=== PATIENT | female | born 1970 | race Caucasian/White ===

== ENCOUNTER 2017-01-01 10:53 | Emergency (ER) | payer SELFPAY ==
[2017-01-01] MEDS ORDERED: Ketorolac Tromethamine 60 MG/2 ML VIAL ONE (10:57)
== END 2017-01-01 11:19 | disposition home or self-care (01) ==
LOC: BURERS 10:53
DX: T22.111A Burn of first degree of right forearm, initial encounter (principal); T31.0 Burns involving less than 10% of body surface; E11.9 Type 2 diabetes mellitus without complications; I10 Essential (primary) hypertension; F32.9 Major depressive disorder, single episode, unspecified; Z79.84 Long term (current) use of oral hypoglycemic drugs; X11.8XXA Contact with other hot tap-water, initial encounter
CPT/HCPCS: 96372; J1885

== ENCOUNTER 2017-07-07 10:38 | Emergency (ER) | payer SELFPAY ==
[2017-07-07] MEDS ORDERED: Nitroglycerin 2% Ointment 1 INCH/1 GM Packet ONE (10:53)
[2017-07-07 11:09] LABS: #Basophils 0.1 thou/uL (0.0-0.2); #Eosinphils 0.1 thou/uL (0.0-0.7); #Monocytes 0.5 thou/uL (0.11-0.59); %Basophils 0.6 % (0.0-1.0); %Lymphocytes 27.9 % (21.0-51.0); %Monocytes 4.3 % (0.0-10.0); %Neutrophils 66.1 % (42.0-75.0); Hemoglobin 19.9 g/dL (12.0-16.0); Mean Corpuscular HGB CONC 33.1 g/dL (32.0-36.0); Mean Corpuscular Hemoglobin 30.4 pg (27.0-31.0); Mean Corpuscular Volume 91.9 fl (81.0-99.0); Mean Platelet Volume 9.9 fL (7.4-10.4); Platelet Count 154 thou/uL (130-400); RBC Distribution Width 11.8 % (11.5-14.5); Red Blood Cell (RBC) Count 6.55 mill/uL (4.20-5.40); White Blood Cell (WBC) Count 10.6 thou/uL (4.8-10.8)
[2017-07-07 11:18] LABS: ALT (SGPT) 178 U/L (8-55); AST (SGOT) 115 U/L (5-34); Albumin 3.9 g/dL (3.5-5.0); Alkaline Phosphatase 242 U/L (40-150); Anion Gap 17 mmol/L (10-20); BUN (Urea Nitrogen) 16 mg/dL (7.0-18.7); Bilirubin, Total 0.9 mg/dL (0.2-1.2); Calc. Creatinine Clearance 0 mL/min (70-130); Calcium 9.7 mg/dL (7.8-10.44); Carbon Dioxide 21 mmol/L (22-29); Chloride 102 mmol/L (98-107); Estimated GFR-MDRD 81; Globulin 4.6 g/dL (2.4-3.5); Glucose 348 mg/dL (70-105); Protein, Total 8.5 g/dL (6.0-8.3); Sodium 136 mmol/L (136-145)
[2017-07-07 11:20] LABS: CKMB 0.7 ng/mL (0-6.6); Troponin I Less than 0.010 ng/mL (< 0.028)
[2017-07-07] MEDS ORDERED: Ketorolac Tromethamine 30 MG/ML VIAL ONE (11:36)
--- NOTE | 2017-07-07 11:52 | RAD ---
PORTABLE CHEST: Date: 07-07-17 An AP portable film at 1056 is compared with a 10-21-11 study. FINDINGS: The heart is normal in size and the lungs are clear. No infiltrate or effusion was seen. There is no congestion of vessels. The trachea is midline. IMPRESSION: No acute finding. POS: HOME
[2017-07-07] MEDS ORDERED: Prochlorperazine 10 MG/2 ML VIAL ONE (11:56)
[2017-07-07] MEDS ORDERED: traMADol HCl 50 MG TAB ONE (12:16)
--- NOTE | 2017-07-07 13:32 | CT ---
CT ABDOMEN AND PELVIS WITHOUT CONTRAST 07/07/2017 TECHNIQUE: A spiral CT of the abdomen and pelvis was done without oral or IV contrast, as requested. Axial sli randall were acquired and then coronal and sagittal reconstructions were done. FINDINGS: The lung bases are clear. The liver is perhaps upper normal to borderline in size but internally ap pears normal. The spleen, pancreas, adrenal glands, kidneys, and abdominal aorta are unremarkable i n appearance. No gallbladder is seen. The bowel is nondistended, showing no sign of obstruction. No inflammatory change is seen around th e bowel. There is no bowel wall thickening. No free air or free fluid is present. CT pelvis shows no pelvic masses, fluid collections, or inflammatory changes. The bony structures i n the pelvic region are unremarkable. IMPRESSION: 1. Hepatic size is upper normal or borderline. This may or may not be significant. 2. Not mentioned above but present is a very vague lucent area in the left kidney that might be a c yst, but an elective ultrasound would be needed to be certain. POS: HOME
[2017-07-07 17:34] LABS: HBCM Index 0.15 S/CO (0-0.79); Hep A IgM AB Non-Reactive (NonReactive); Hep A IgM S/CO 0.17 S/CO (0-0.79); Hep B Surf Ag Non-Reactive S/CO (NonReactive); Hepatitis B Core IGM Abs Non-Reactive (NonReactive)
[2017-07-07 18:09] LABS: Hep C IgG Ab Reflex HepC Qnt (NonReactive); Hep C Index 13.61 S/CO (0-0.79)
[2017-07-11 14:13] LABS: HCV log10 6.146 (.); Hep C PCR-Quant 1400000 IU/mL (.)
== END 2017-07-07 12:43 | disposition home or self-care (01) ==
LOC: BURERS 10:38
DX: S43.401A Unspecified sprain of right shoulder joint, initial encounter (principal); R07.89 Other chest pain; I10 Essential (primary) hypertension; E11.9 Type 2 diabetes mellitus without complications; F31.9 Bipolar disorder, unspecified; F41.9 Anxiety disorder, unspecified; F17.210 Nicotine dependence, cigarettes, uncomplicated
CPT/HCPCS: 36415; 71010; 74176; 80053; 80074; 82553; 83880; 84484; 85025; 85379; 87522; 93005; 96361; 96374; 96375; J0780; J1885

== ENCOUNTER 2018-05-08 13:30 | Emergency (ER) | payer SELFPAY ==
[2018-05-08] MEDS ORDERED: Insulin Regular 300 UNITS/3 ML VIAL ONE (13:39)
[2018-05-08 14:06] LABS: #Eosinphils 0.1 thou/uL (0.0-0.7); #Lymphocytes 2.1 thou/uL (1.20-3.40); #Monocytes 0.2 thou/uL (0.11-0.59); #Neutrophils 5.4 thou/uL (1.40-6.50); %Basophils 0.5 % (0.0-1.0); %Eosinophils 1.7 % (0.0-10.0); %Lymphocytes 27.1 % (21.0-51.0); %Monocytes 2.4 % (0.0-10.0); %Neutrophils 68.3 % (42.0-75.0); Hemoglobin 16.2 g/dL (12.0-16.0); Mean Corpuscular HGB CONC 35.3 g/dL (32.0-36.0); Mean Corpuscular Hemoglobin 29.9 pg (27.0-31.0); Mean Corpuscular Volume 84.6 fL (78.0-98.0); Mean Platelet Volume 9.3 fL (7.4-10.4); Platelet Count 134 thou/uL (130-400); RBC Distribution Width 11.4 % (11.5-14.5); Red Blood Cell (RBC) Count 5.44 mill/uL (4.20-5.40); White Blood Cell (WBC) Count 7.8 thou/uL (4.8-10.8)
[2018-05-08] MEDS ORDERED: Lisinopril 20 MG TAB ONE (14:08)
[2018-05-08 14:12] LABS: ALT (SGPT) 210 U/L (8-55); AST (SGOT) 117 U/L (5-34); Albumin 3.3 g/dL (3.5-5.0); Alkaline Phosphatase 262 U/L (40-150); Anion Gap 12 mmol/L (10-20); BUN (Urea Nitrogen) 13 mg/dL (7.0-18.7); Bilirubin, Total 0.5 mg/dL (0.2-1.2); Calc. Creatinine Clearance 0 mL/min (70-130); Carbon Dioxide 23 mmol/L (22-29); Chloride 101 mmol/L (98-107); Estimated GFR-MDRD 81; Glucose 504 mg/dL (70-105); Potassium 3.3 mmol/L (3.5-5.1); Protein, Total 7.3 g/dL (6.0-8.3); Sodium 133 mmol/L (136-145)
[2018-05-08] MEDS ORDERED: Potassium Chloride 20 MEQ TAB ONE (14:32)
[2018-05-08 14:48] LABS: Bilirubin Negative (Negative); Blood, Urine Trace (Negative); Clarity Cloudy (Clear); Glucose, Urine (Dipstick) 500 mg/dL (Negative); Leukocyte Small (Negative); Nitrite Negative (Negative); Protein, Urine (Dipstick) Negative (Neg-Trace); Specific Gravity, Urine 1.015 (1.005-1.030); Urobilinogen 0.2 mg/dL (0.2-1.0); pH, Urine 5.5 (5.0-9.0)
[2018-05-08 14:56] LABS: Bacteria/HPF 1+ HPF (None Seen); Crystals/HPF None Seen HPF (Negative); Hyaline Casts/LPF NONE SEEN LPF (0-3 Hyaline); Other Casts/LPF None Seen LPF (0-3 Hyaline); Oval Fat Bodies/HPF None Seen HPF (None Seen); RBC/HPF 0-3 HPF (0-3); Renal Epithelial None Seen HPF (0-3); Sperm/HPF None Seen HPF (None Seen); Transitional Epithelial NONE SEEN HPF (0-3); Trichomonas/HPF Rare HPF (None Seen); Yeast-All Forms 1+ HPF (None Seen)
== END 2018-05-08 15:17 | disposition home or self-care (01) ==
LOC: BURERS 13:30
DX: E11.65 Type 2 diabetes mellitus with hyperglycemia (principal); A59.01 Trichomonal vulvovaginitis; N30.00 Acute cystitis without hematuria; I10 Essential (primary) hypertension; F32.9 Major depressive disorder, single episode, unspecified; F17.210 Nicotine dependence, cigarettes, uncomplicated; Z79.4 Long term (current) use of insulin; Z79.899 Other long term (current) drug therapy
CPT/HCPCS: 36416; 80053; 81003; 81015; 85025; 96361; 96374; J1815

== ENCOUNTER 2018-06-26 22:44 | Emergency (ER) | payer SELFPAY ==
[2018-06-26 23:28] LABS: Bilirubin Small (Negative); Blood, Urine Moderate (Negative); Clarity Cloudy (Clear); Glucose, Urine (Dipstick) 500 mg/dL (Negative); Leukocyte Small (Negative); Nitrite Negative (Negative); Protein, Urine (Dipstick) 100 mg/dL (Neg-Trace); Specific Gravity, Urine 1.037 (1.002-1.036); Urobilinogen 0.2 mg/dL (0.2-1.0); pH, Urine 5.5 (5.0-9.0)
[2018-06-26 23:28] LABS: #Basophils 0.1 thou/uL (0.0-0.2); #Eosinphils 0.2 thou/uL (0.0-0.7); #Lymphocytes 3.3 thou/uL (1.20-3.40); #Monocytes 0.6 thou/uL (0.11-0.59); #Neutrophils 6.5 thou/uL (1.40-6.50); %Basophils 1.1 % (0.0-1.0); %Eosinophils 1.5 % (0.0-10.0); %Lymphocytes 30.8 % (21.0-51.0); %Monocytes 5.6 % (0.0-10.0); Hemoglobin 16.9 g/dL (12.0-16.0); Mean Corpuscular HGB CONC 36.7 g/dL (32.0-36.0); Mean Corpuscular Hemoglobin 29.8 pg (27.0-31.0); Mean Corpuscular Volume 81.1 fL (78.0-98.0); Mean Platelet Volume 8.4 fL (7.4-10.4); Platelet Count 138 thou/uL (130-400); RBC Distribution Width 11.4 % (11.5-14.5); Red Blood Cell (RBC) Count 5.69 mill/uL (4.20-5.40); White Blood Cell (WBC) Count 10.7 thou/uL (4.8-10.8)
[2018-06-26] MEDS ORDERED: Ondansetron HCl/PF 4 MG/2 ML Vial ONE (23:30)
[2018-06-26] MEDS ORDERED: Ketorolac Tromethamine 30 MG/ML VIAL ONE (23:30)
[2018-06-26 23:35] LABS: Bacteria/HPF 2+ HPF (None Seen); Other Microscopic Description FEW CLUE CELLS; Squamous Epithelial 0-3 HPF (0-3)
[2018-06-26 23:42] LABS: ALT (SGPT) 231 U/L (8-55); AST (SGOT) 137 U/L (5-34); Albumin 3.7 g/dL (3.5-5.0); Alkaline Phosphatase 192 U/L (40-150); Anion Gap 13 mmol/L (10-20); BUN (Urea Nitrogen) 25 mg/dL (7.0-18.7); Bilirubin, Total 0.6 mg/dL (0.2-1.2); Calc. Creatinine Clearance 0 mL/min (70-130); Calcium 9.1 mg/dL (7.8-10.44); Carbon Dioxide 24 mmol/L (22-29); Chloride 104 mmol/L (98-107); Estimated GFR-MDRD 78; Globulin 4.3 g/dL (2.4-3.5); Glucose 274 mg/dL (70-105); Potassium 3.7 mmol/L (3.5-5.1); Sodium 137 mmol/L (136-145)
[2018-06-26] MEDS ORDERED: cefTRIAXone\\ROCEPHIN 1 GM VIAL ONE (23:46)
[2018-06-26] MEDS ORDERED: Sodium Chloride 0.9% 100 ML ONE (23:47)
== END 2018-06-27 00:42 | disposition home or self-care (01) ==
LOC: BURERS 22:44
DX: N39.0 Urinary tract infection, site not specified (principal); E11.9 Type 2 diabetes mellitus without complications; E78.5 Hyperlipidemia, unspecified; F32.9 Major depressive disorder, single episode, unspecified; F17.210 Nicotine dependence, cigarettes, uncomplicated; I10 Essential (primary) hypertension; Z79.4 Long term (current) use of insulin; Z79.899 Other long term (current) drug therapy
CPT/HCPCS: 36416; 80053; 81003; 81015; 85025; 87077; 87086; 96365; 96375; J0696; J1885; J2405; J7050

== ENCOUNTER 2018-09-17 08:09 | Emergency (ER) | payer SELFPAY ==
[2018-09-17] MEDS ORDERED: Cephalexin 500 MG CAP ONE (08:43)
[2018-09-17] MEDS ORDERED: Sulfameth/Trimethoprim DS 800-160mg TAB ONE (08:43)
[2018-09-17] MEDS ORDERED: HYDROcodone/Acetaminophen 10/325 mg Tablet ONE (08:43)
[2018-09-17] MEDS ORDERED: Ondansetron ODT 4 MG TAB ONE (09:03)
== END 2018-09-17 09:43 | disposition home or self-care (01) ==
LOC: BURERS 08:09
DX: N61.1 Abscess of the breast and nipple (principal); E11.65 Type 2 diabetes mellitus with hyperglycemia; I10 Essential (primary) hypertension; F32.9 Major depressive disorder, single episode, unspecified; F17.210 Nicotine dependence, cigarettes, uncomplicated; Z79.899 Other long term (current) drug therapy
CPT/HCPCS: 10060; 36416; Q0162

== ENCOUNTER 2018-10-25 08:01 | Emergency (ER) | payer SELFPAY ==
[2018-10-25] MEDS ORDERED: Ondansetron ODT 4 MG TAB ONE (08:18)
[2018-10-25] MEDS ORDERED: Benzonatate 100 MG CAP ONE (08:18)
== END 2018-10-25 08:53 | disposition home or self-care (01) ==
LOC: BURERS 08:01
DX: J11.1 Influenza due to unidentified influenza virus with other respiratory manifestations (principal); E11.9 Type 2 diabetes mellitus without complications; I10 Essential (primary) hypertension; F32.9 Major depressive disorder, single episode, unspecified; F17.210 Nicotine dependence, cigarettes, uncomplicated; Z79.899 Other long term (current) drug therapy
CPT/HCPCS: 36416; 87804; 99283; Q0162

== ENCOUNTER 2019-01-28 06:56 | Emergency (ER) | payer SELFPAY | END 2019-01-28 07:20 | disposition home or self-care (01) | LOC: BURERS 06:56 | DX: K02.9 Dental caries, unspecified (principal); I10 Essential (primary) hypertension; E11.9 Type 2 diabetes mellitus without complications; E78.5 Hyperlipidemia, unspecified; F17.210 Nicotine dependence, cigarettes, uncomplicated; F32.9 Major depressive disorder, single episode, unspecified; Z79.899 Other long term (current) drug therapy; Z79.84 Long term (current) use of oral hypoglycemic drugs | CPT/HCPCS: 99282 ==

== ENCOUNTER 2019-03-03 04:10 | Emergency (ER) | payer SELFPAY ==
[2019-03-04 08:05] LABS: Albumin 3.6 g/dL (3.5-5.0); Anion Gap 13 mmol/L (10-20); BUN (Urea Nitrogen) 14 mg/dL (7.0-18.7); Bilirubin, Total 0.3 mg/dL (0.2-1.2); Calc. Creatinine Clearance 0 mL/min (70-130); Calcium 9.4 mg/dL (7.8-10.44); Carbon Dioxide 26 mmol/L (22-29); Chloride 101 mmol/L (98-107); Estimated GFR-MDRD 81; Globulin 4.3 g/dL (2.4-3.5); Glucose 292 mg/dL (70-105); Lipase 161 U/L (8-78); Potassium 3.8 mmol/L (3.5-5.1); Protein, Total 7.9 g/dL (6.0-8.3); Sodium 136 mmol/L (136-145)
[2019-03-04 08:06] LABS: ALT (SGPT) 131 U/L (8-55); AST (SGOT) 82 U/L (5-34); Alkaline Phosphatase 160 U/L (40-150)
[2019-03-04 08:09] LABS: CKMB 0.9 ng/mL (0-6.6); Troponin I Less than 0.010 ng/mL (< 0.028)
[2019-03-04 08:19] LABS: #Basophils 0.1 thou/uL (0.0-0.2); #Eosinphils 0.1 thou/uL (0.0-0.7); #Lymphocytes 2.9 thou/uL (1.20-3.40); #Monocytes 0.5 thou/uL (0.11-0.59); #Neutrophils 6.9 thou/uL (1.40-6.50); %Basophils 0.6 % (0.0-1.0); %Eosinophils 1.4 % (0.0-10.0); %Lymphocytes 27.3 % (21.0-51.0); %Monocytes 4.4 % (0.0-10.0); %Neutrophils 66.4 % (42.0-75.0); Mean Corpuscular HGB CONC 32.2 g/dL (32.0-36.0); Mean Corpuscular Hemoglobin 29.6 pg (27.0-31.0); Mean Corpuscular Volume 92.1 fL (78.0-98.0); Mean Platelet Volume 8.1 fL (7.4-10.4); Platelet Count 118 thou/uL (130-400); Platelet Morphology Comment Appears Decreased; RBC Distribution Width 11.9 % (11.5-14.5); RBC Morphology Normal; Red Blood Cell (RBC) Count 5.74 mill/uL (4.20-5.40); White Blood Cell (WBC) Count 10.4 thou/uL (4.8-10.8)
[2019-03-04 08:22] LABS: Clarity Clear (Clear)
[2019-03-04 08:23] LABS: Bilirubin Negative (Negative); Blood, Urine Moderate (Negative); Glucose, Urine (Dipstick) >=1000 mg/dL (Negative); Leukocyte Negative (Negative); Nitrite Negative (Negative); Protein, Urine (Dipstick) 100 mg/dL (Neg-Trace); pH, Urine 5.5 (5.0-9.0)
[2019-03-04 08:24] LABS: Bacteria/HPF 1+ HPF (None Seen); Squamous Epithelial 0-3 HPF (0-3)
[2019-03-04 08:25] LABS: Other Microscopic Description MUCOUS PRESENT
[2019-03-04 08:27] LABS: Specific Gravity, Urine 1.041 (1.005-1.030)
--- NOTE | 2019-03-04 17:18 | SJPRAD ---
PORTABLE CHEST: 03/03/19 Comparison is made with the 10/28/18 study. Portable film at 1647 shows no adverse change. The heart is normal in size and the lungs are clear. N o infiltrate or effusion was seen. IMPRESSION: No acute findings. POS: HOME
== END 2019-03-03 19:15 | disposition home or self-care (01) ==
LOC: BURERS 04:10
DX: N39.0 Urinary tract infection, site not specified (principal); E11.65 Type 2 diabetes mellitus with hyperglycemia; I10 Essential (primary) hypertension; E86.9 Volume depletion, unspecified; Z91.14 Patient's other noncompliance with medication regimen
CPT/HCPCS: 80053; 81003; 81015; 82553; 83690; 84484; 85025; 87077; 87086

== ENCOUNTER 2019-06-19 10:51 | Emergency (ER) | payer SELFPAY ==
[2019-06-19] MEDS ORDERED: Bupivacaine 0.5% 10 ML VIAL ONE (11:02)
== END 2019-06-19 11:25 | disposition home or self-care (01) ==
LOC: BURERS 10:51
DX: K04.7 Periapical abscess without sinus (principal); K02.9 Dental caries, unspecified; E11.9 Type 2 diabetes mellitus without complications; I10 Essential (primary) hypertension; F17.210 Nicotine dependence, cigarettes, uncomplicated
CPT/HCPCS: 64400; J3490

== ENCOUNTER 2019-06-21 19:27 | Emergency (ER) | payer SELFPAY ==
[2019-06-21] MEDS ORDERED: Ibuprofen 200 MG TAB ONE (19:51)
== END 2019-06-21 20:20 | disposition home or self-care (01) ==
LOC: BURERS 19:27
DX: S83.91XA Sprain of unspecified site of right knee, initial encounter (principal); E78.5 Hyperlipidemia, unspecified; E11.9 Type 2 diabetes mellitus without complications; I10 Essential (primary) hypertension; F17.210 Nicotine dependence, cigarettes, uncomplicated; Z79.899 Other long term (current) drug therapy; Z79.4 Long term (current) use of insulin; X50.1XXA Overexertion from prolonged static or awkward postures, initial encounter
CPT/HCPCS: 99283

== ENCOUNTER → 2019-10-29 | Emergency (ER) | payer SELFPAY ==
[~2019-10-29] MED LIST: HYDROcodone/Acetaminophen 10/325 mg Tablet ONE; Ketorolac Tromethamine 60 MG/2 ML VIAL ONE
[2019-10-29 13:02] LABS: #Basophils 0.1 thou/uL (0.0-0.2); #Eosinphils 0.1 thou/uL (0.0-0.7); #Lymphocytes 1.7 thou/uL (1.20-3.40); #Monocytes 0.4 thou/uL (0.11-0.59); #Neutrophils 6.9 thou/uL (1.40-6.50); %Basophils 0.7 % (0.0-1.0); %Eosinophils 1.5 % (0.0-10.0); %Lymphocytes 18.8 % (21.0-51.0); %Monocytes 4.7 % (0.0-10.0); %Neutrophils 74.3 % (42.0-75.0); Hemoglobin 16.7 g/dL (12.0-16.0); Mean Corpuscular HGB CONC 30.9 g/dL (32.0-36.0); Mean Corpuscular Hemoglobin 29.2 pg (27.0-31.0); Mean Corpuscular Volume 94.5 fL (78.0-98.0); Mean Platelet Volume 9.1 fL (7.4-10.4); Platelet Count 116 thou/uL (130-400); RBC Distribution Width 13.3 % (11.5-14.5); Red Blood Cell (RBC) Count 5.71 mill/uL (4.20-5.40); White Blood Cell (WBC) Count 9.3 thou/uL (4.8-10.8)
[2019-10-29 13:03] LABS: ALT (SGPT) 94 U/L (8-55); AST (SGOT) 82 U/L (5-34); Albumin 3.7 g/dL (3.5-5.0); Alkaline Phosphatase 131 U/L (40-110); Anion Gap 14 mmol/L (10-20); BUN (Urea Nitrogen) 11 mg/dL (7.0-18.7); Bilirubin, Total 0.6 mg/dL (0.2-1.2); Calc. Creatinine Clearance 0 mL/min (70-130); Calcium 9.3 mg/dL (7.8-10.44); Carbon Dioxide 25 mmol/L (22-29); Chloride 105 mmol/L (98-107); Estimated GFR-MDRD Greater than 90; Globulin 4.1 g/dL (2.4-3.5); Glucose 183 mg/dL (70-105); Potassium 3.8 mmol/L (3.5-5.1); Protein, Total 7.8 g/dL (6.0-8.3); Sodium 140 mmol/L (136-145)
--- NOTE | 2019-10-29 13:49 | RAD ---
LEFT KNEE FOUR VIEWS: 10/29/2019 FINDINGS: Fractures are present through the proximal tibia and tibial plateau. The lateral tibial plateau, in p articular, shows lytic destruction and an extensive area of lucency with adjacent sclerosis. These fi ndings suggest a pathological fracture. The primary concern in this age group would be a metastatic l esion. A primary tumor of the area would be possible but less likely. There is minimal separation of the fracture fragments. A joint effusion was seen. IMPRESSION: Pathological fracture of the proximal tibia, including the tibial plateau; in particular, lytic destr uction of the lateral tibial plateau and its articular surface is present. Preliminary findings discussed with Dr. Smith at 12:20 on 10/29/2019. CODE CR POS: HOME
--- NOTE | 2019-10-29 13:50 | RAD ---
PELVIS TWO VIEWS: 10/29/2019 FINDINGS: No fracture or area of lytic destruction is seen in the pelvis. The hips appear intact and symmetrica l. The symphysis shows no widening or offset and the SI joints are symmetrical. The sacrum appears in tact. Arteriosclerotic calcification is present in the iliac and femoral vessels. IMPRESSION: No acute findings. POS: HOME
--- NOTE | 2019-10-29 13:55 | RAD ---
AP PORTABLE CHEST: 10/29/2019 1230 HOURS COMPARISON: 03/03/2019 FINDINGS: The heart is normal in size. The lungs are clear with no acute infiltrate, effusion or pulmonary mass . A crescent like density over the left lower hemithorax laterally, near the costophrenic angle, is f elt to be most likely due to overlapping soft tissues than pleural-based thickening. No bony destruct caio lesions are indicated. There is some very minor haziness in the right costophrenic angle, which seems more likely to be atel ectasis or lung markings than not. IMPRESSION: No acute thoracic findings. POS: HOME
== END ==
LOC: BURERS 11:30
DX: M84.462A Pathological fracture, left tibia, initial encounter for fracture (principal); F17.210 Nicotine dependence, cigarettes, uncomplicated; E11.9 Type 2 diabetes mellitus without complications; E78.5 Hyperlipidemia, unspecified; I10 Essential (primary) hypertension; Z79.84 Long term (current) use of oral hypoglycemic drugs; Z79.899 Other long term (current) drug therapy
CPT/HCPCS: 27532; 36415; 71045; 72170; 80053; 85025; 96372; J1885

== ENCOUNTER 2021-09-03 14:31 | Emergency (ER) | payer OTHER ==
[2021-09-03] MEDS ORDERED: Lidocaine 1% w/Epinephrine 1:100K 20 ML VIAL ONE (14:43)
[2021-09-03] MEDS ORDERED: Bacitracin 1 PK ONE (14:53)
== END 2021-09-03 15:00 | disposition home or self-care (01) ==
LOC: BURERS 14:31
DX: L02.211 Cutaneous abscess of abdominal wall (principal); E78.5 Hyperlipidemia, unspecified; E11.9 Type 2 diabetes mellitus without complications; I10 Essential (primary) hypertension; F17.210 Nicotine dependence, cigarettes, uncomplicated
CPT/HCPCS: 10060

== ENCOUNTER 2024-09-27 18:05 | Emergency (ER) | payer MEDICARE, OTHER ==
[2024-09-27] MEDS ORDERED: Morphine 4 MG/ML VIAL ONE (18:13)
== END 2024-09-27 18:36 | disposition home or self-care (01) ==
LOC: BURERS 18:05
DX: S42.351A Displaced comminuted fracture of shaft of humerus, right arm, initial encounter for closed fracture (principal); E11.9 Type 2 diabetes mellitus without complications; I10 Essential (primary) hypertension; F17.210 Nicotine dependence, cigarettes, uncomplicated; W01.0XXA Fall on same level from slipping, tripping and stumbling without subsequent striking against object, initial encounter
CPT/HCPCS: 96372; 99283; J2272

== ENCOUNTER 2024-10-28 17:30 | Emergency (ER) | payer MEDICARE, OTHER ==
[2024-10-28] MEDS ORDERED: Ketorolac Tromethamine 60 MG/2 ML VIAL ONE (18:43)
[2024-10-28] MEDS ORDERED: HYDROcodone/Acetaminophen 10/325 mg Tablet ONE (18:44)
[2024-10-28] MEDS ORDERED: Lidocaine 4% Patch ONE (19:36)
== END 2024-10-28 19:37 | disposition home or self-care (01) ==
LOC: BURERS 17:30
DX: S22.42XA Multiple fractures of ribs, left side, initial encounter for closed fracture (principal); S42.201A Unspecified fracture of upper end of right humerus, initial encounter for closed fracture; I10 Essential (primary) hypertension; E11.9 Type 2 diabetes mellitus without complications; F17.210 Nicotine dependence, cigarettes, uncomplicated; E66.01 Morbid (severe) obesity due to excess calories; W18.30XA Fall on same level, unspecified, initial encounter; Y93.01 Activity, walking, marching and hiking; Z79.899 Other long term (current) drug therapy
CPT/HCPCS: 71101; J1885; 96372; 99283

== ENCOUNTER 2025-06-26 09:39 | Emergency (ER) | payer MEDICARE, OTHER ==
[2025-06-26] MEDS ORDERED: Ondansetron PF 4 MG/2 ML Vial ONE (09:53)
[2025-06-26 10:02] LABS: #Basophils 0.1 thou/uL (0.0-0.2); #Eosinophils 0.3 thou/uL (0.0-0.7); #Lymphocytes 1.6 thou/uL (1.20-3.40); #Monocytes 0.5 thou/uL (0.11-0.59); #Neutrophils 9.5 thou/uL (1.40-6.50); %Basophils 1.2 % (0.0-1.0); %Eosinophils 2.6 % (0.0-10.0); %Lymphocytes 13.1 % (21.0-51.0); %Monocytes 3.8 % (0.0-10.0); %Neutrophils 79.3 % (42.0-75.0); Hematocrit 44.8 % (36.0-47.0); Hemoglobin 14.9 g/dL (12.0-16.0); Mean Corpuscular Hemoglobin 26.6 pg (27.0-31.0); Mean Corpuscular Volume 80.2 fl (78.0-98.0); Platelet Count 156 10x3/uL (130-400); Red Blood Cell (RBC) Count 5.59 mill/uL (4.20-5.40); White Blood Cell (WBC) Count 12.0 10x3/uL (4.8-10.8)
[2025-06-26] MEDS ORDERED: Famotidine/PF 20 mg/2ml Vial ONE (10:09)
[2025-06-26 10:13] LABS: Glucose, Urine (Dipstick) 250 mg/dL (Negative); Leukocyte Negative (Negative); Protein, Urine (Dipstick) 100 mg/dL (Neg-Trace); Specific Gravity, Urine 1.020 (1.005-1.030)
[2025-06-26 10:14] LABS: ALT (SGPT) 15 U/L (Less than 34); AST (SGOT) 32 U/L (11-34); Albumin 3.5 g/dL (3.1-4.5); Alkaline Phosphatase 129 U/L (40-110); Anion Gap 20 mmol/L (10-20); BUN (Urea Nitrogen) 20 mg/dL (9.8-20.1); Bilirubin, Total 1.0 mg/dL (0.3-1.2); Calc. Creatinine Clearance 0 mL/min (70-130); Calcium 9.2 mg/dL (7.8-10.44); Carbon Dioxide 20 mmol/L (22-29); Chloride 107 mmol/L (98-107); Globulin 4.4 g/dL (2.4-3.5); Glucose 224 mg/dL (70-105); Potassium 3.0 mmol/L (3.5-5.1); Sodium 144 mmol/L (136-145)
[2025-06-26 10:18] LABS: Troponin I Less than 0.010 ng/mL (< 0.028)
[2025-06-26 10:20] LABS: Acetaminophen Less than 10 mcg/mL (Less than 10); Lipase 42 U/L (8-78); Salicylate Less than 8.0 mg/dL (Less than 8.0)
[2025-06-26] MEDS ORDERED: Potassium Chloride 20 MEQ (100 mL) BAG ONE (10:23)
[2025-06-26 10:24] LABS: Bacteria/HPF Rare-Few HPF (None Seen); CAUTI Indications for Culture Dysuria,urgency,freq; Urine Culture Reflex No No; WBC/HPF 0-3 HPF (0-3)
[2025-06-26] MEDS ORDERED: Iopamidol 370 76% 100 ML VIAL ONE (10:24)
[2025-06-26 10:30] LABS: Cocaine Metabolite Screen Negative (Negative); THC/Cannabinoid Screen PRELIM POSITIVE (Negative); Tricyclic Screen Negative (Negative)
== END 2025-06-26 13:32 | disposition home or self-care (01) ==
LOC: BURERS 09:39
DX: K52.9 Noninfective gastroenteritis and colitis, unspecified (principal); E87.6 Hypokalemia; R11.2 Nausea with vomiting, unspecified; E11.9 Type 2 diabetes mellitus without complications; I10 Essential (primary) hypertension; F17.210 Nicotine dependence, cigarettes, uncomplicated; Z79.4 Long term (current) use of insulin; Z79.899 Other long term (current) drug therapy
CPT/HCPCS: 36416; 71045; 74177; 80053; 80306; 80307; 81001; 83605; 83690; 83880; 84484; 85025; 93005; 94760; 96361; 96374; 96375; J1308; J2060; J2405; J2550; J3480; Q9967